=== PATIENT | male | born 1940 | race Caucasian/White ===

== ENCOUNTER 2018-11-25 11:30 | Outpatient (CLI) | payer MEDICARE, OTHER, SELFPAY ==
[2018-11-25 12:00] VITALS: BP 150/89; PULSE 67; RESP 24; TEMP 36.2; O2SAT 99
--- NOTE | 2018-11-25 12:32 | DI.RAD_ITS ---
SYMPTOMS/DIAGNOSIS: COCCYDYNIA [facility]: Fluoroscopy Time: 30.3 sec 16.54 mGy Fluoroscopy was utilized by Dr. Langford during the performance of a sacral ganglion block. Please refer to the procedure report for complete details.
--- NOTE | 2018-11-25 12:37 | PDOC.PAIN_ITS ---
Pain Clinic Procedure Note Current Active Problems Problem Status Onset Coccygodynia Acute GANGLION IMPAR BLOCK Dimitri Klein has been [facility] for Ganglion Impar Block. COMMENTS: He was previously evaluated in our office. Patient was interviewed and the medical record reviewed. There were no medical, pharmacologic, radiographic or other structural contraindications to attempting fluoroscopically guided Ganglion Impar Block. Risks and expected side effects as well as potential benefit of the procedure were reviewed and voiced concerns addressed. The printed consent form was signed and witnessed. Standard time- out procedure was performed. Patient was placed in the prone position on the fluoroscopy table and automated blood pressure cuff and pulse oximeter applied. The skin entry point for approaching the sacrococcygeal ligament was identified under the most advantageous fluoroscopic view and marked. Following thorough Chlorhexadine preparation of the skin and draping and 1% lidocaine infiltration of the skin entry point and subcutaneous tissues, a 22 gauge spinal needle was placed under fluoroscopic guidance to the Ganglion Impar as identified under the most advantageous fluoroscopic view and marked. Following thorough Chlorhexadine preparation of the skin and draping and 1% lidocaine infiltration of the skin entry point and subcutaneous tissues, a 22 gauge spinal needle was placed under fluoroscopic guidance into Ganglion Impar. Placement was confirmed by a clear contrast spread resulting from the injection of 2 ml Omnipaque 240, 9 ml 0.5% Bupivacaine, and 80mg Depomedrol were injected intra-articularily with an initial reproduction of a significant component of the usual pain. The needle was flushed with 1 cc of 1% lidocaine and removed without difficulty. Vital signs were stable throughout the procedure and were as recorded in the docflowsheet by the nursing staff. If given, dosages of intravenous drugs for anxiolysis and analgesia were documented in MAR. Follow up plans and appointments were discussed with the patient. Post procedure instruction was given as documented in nursing documentation and having met discharge criteria, and was discharged from the [facility]. COMMENTS: This procedure can be completed up to 3 times per 12 months if it is found to be effective. CC: Benito Cason
[2018-11-25] MEDS: methylPREDNISolone ACETATE 80 MG/ML VIAL IJ (12:38)
[2018-11-25] MEDS: Omnipaque 240 MG/ML 50 ML BTL IJ (12:38)
[2018-11-25 12:40] VITALS: BP 161/83; PULSE 87; RESP 18; O2SAT 98
[2018-11-25] MEDS: Bupivacaine 0.5% Pres-Free 10 ML VIAL IJ (12:40)
== END 2018-11-25 11:50 ==
PROVIDERS: PCP Internal Medicine; Visit Provider Preventive Medicine Occupational Medicine
DX: M53.3 Sacrococcygeal disorders, not elsewhere classified (principal)
CPT/HCPCS: 64520; 72220; J1040; Q9967

== ENCOUNTER 2021-10-12 01:12 | Outpatient (CLI) | payer MEDICARE, OTHER, SELFPAY ==
--- NOTE | 2021-10-12 11:15 | DI.NM_ITS ---
Exam(s) NM BONE SCAN WHOLE BODY GRP EXAM: NM BONE SCAN WHOLE BODY GRP CLINICAL HISTORY: H/O PROSTATE CA, METS TO BONE, C61, C79.51, RISING PSA, RESTAGING. TECHNIQUE: Injected Dose: 25 mCi Tc-99m MDP Delayed Images: 2-3 hours. COMPARISON: MR MR LS SPINE WO CONTRAST from 08/12/2018 MR MR PELVIS WO CONTRAST from 10/07/2018 no prior bone scans are available. FINDINGS: There is a focus increased activity in the proximal right humeral shaft consistent with metastasis. Small focus of increased activity seen in the left pelvis, near the left SI joint. Both of these foc i are suspicious for metastatic disease. There is mildly increased activity seen at the L4-5 level w hich could be secondary to degenerative changes. Increased activity in the left lower mandible could be related to dental disease. Mildly increased activity at the left sternal clavicular joint also b e secondary to degenerative changes. Bilateral renal excretion is identified. IMPRESSION: 1. Foci in the right proximal humerus and left sacrum versus ileum are suspicious for metastatic lesi ons. Mildly increased activity at the L4-5 level could be secondary to metastatic disease or degener ative changes. DATA REPOSITORY:
== END 2021-10-12 01:32 ==
PROVIDERS: PCP Internal Medicine; Visit Provider Internal Medicine Hematology & Oncology
DX: C79.51 Secondary malignant neoplasm of bone (principal); R97.20 Elevated prostate specific antigen [PSA]; C61 Malignant neoplasm of prostate
CPT/HCPCS: 78306

== ENCOUNTER → 2022-04-03 02:08 | Outpatient (CLI) | payer MEDICARE, OTHER, SELFPAY ==
--- NOTE | 2022-04-03 10:45 | DI.NM_ITS ---
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 TECHNIQUE: Injected Dose: 25 mCi Tc-99m MDP Delayed Images: 2-3 hours. COMPARISON: MR MR LS SPINE WO CONTRAST from 08/12/2018 MR MR PELVIS WO CONTRAST from 10/07/2018 RF XR [facility] sacrum 2V from 11/25/2018 NM NM BONE SCAN WHOLE BODY GRP from 10/12/2021 FINDINGS: The previously described abnormal focus of radiopharmaceutical accumulation in the proximal diaphysis of the right humerus is again noted, unchanged from 10/12/2021. There is a significant focus of increased uptake seen in the medial left clavicle at superior aspect of the sternoclavicular joint level, slightly more prominent than previous. This is also suspicious. There is focus prominent increased radiopharmaceutical accumulation in the posterior aspect of the le ft pelvis left SI joint region, this being more prominent than previous. Focus of uptake in the left side of the mandible is unchanged. Mild increased uptake again noted at L4-5 level which may be related to degenerative disease. IMPRESSION: 1. Mild further increase in significant findings as described above. These are most probably metasta tic with the exception of the L4-5 level which may be degenerative. DATA REPOSITORY:
== END ==
PROVIDERS: PCP Internal Medicine; Visit Provider Internal Medicine Hematology & Oncology
DX: C79.51 Secondary malignant neoplasm of bone (principal); C61 Malignant neoplasm of prostate
CPT/HCPCS: 78306